=== PATIENT | female | born 1960 | race Caucasian/White ===

== ENCOUNTER 2017-12-05 05:46 | Observation (INO) | payer OTHER ==
[2017-11-21 14:57] VITALS: BMI 40.0
[2017-12-05] VITALS (14 sets, daily range): BP systolic 92–131; BP diastolic 57–85; PULSE 85–111; TEMP 36.4–36.9; O2SAT 91–96; Ht 165.1 cm; Wt 109.9 kg
[~2017-12-05] VITALS: Ht 165.1 cm; Wt 109.9 kg
[~2017-12-05 05:46] MED LIST: AMLO5TAB3 PO; ATOR-24 PO; DTR/5 PO; FURO-85 PO; GABA-113 PO; MAGN1TAB41 PO; METF-384 PO; MONT1TAB5 PO; PRED10TA PO; SERT-234 PO; SPIR50TA2 PO; TRAM-10 PO; TRAZ50TA35 PO; VNTHFA/IN INH
[2017-12-05] MEDS ORDERED: ACETAMINOPHEN 500 MG TAB PO SCH (06:00)
[2017-12-05] MEDS ORDERED: GABAPENTIN 600 MG PO SCH (06:00)
[2017-12-05] MEDS ORDERED: CEFAZOLIN 2000MG IV PUSH 15 ML IV SCH (06:00)
[2017-12-05] MEDS ORDERED: CeleBREX 200 MG CAP PO SCH (06:00)
[2017-12-05] MEDS ORDERED: LACTATED RINGER'S 1000ML IV SCH (06:00)
[2017-12-05] MEDS ORDERED: MIDAZOLAM HCL 1 MG/ML 2ML VIAL ONE (06:45)
[2017-12-05] MEDS ORDERED: FENTANYL CITRATE INJ 50 MCG/1 ML 2 ML VIAL ONE ×3 (06:45→08:19)
[2017-12-05] MEDS ORDERED: BACITRACIN 50000 UNIT VIAL ONE (06:57)
--- NOTE | 2017-12-05 07:33 | History & Physical Bridge Note ---
H&P Re-Evaluation Bridge Note: I have examined the patient, reviewed the History & Physical and in the interval since the performance of the History & Physical I have noted the following changes of clinical significance: No changes noted
--- NOTE | 2017-12-05 07:34 | History and Physical ---
History & Physical Date Dec 05, 2017. Chief Complaint Neck and arm pain History of Present Illness The patient is a 57 year old female with complaints of neck and arm pain Additional History Hepatic Disease: No Endocrine Disorder: No Kidney Disease: No Hypertension: Yes Heart Disease: No Bleeding Tendencies: No Infectious Diseases: No Other: Diabetes Allergies Coded Allergies: Hydrochlorothiazide (Verified Allergy, Unknown, RASH, 12/05/17) Home Medications Scheduled Amlodipine (Norvasc), 5 MG PO QAM Atorvastatin (Lipitor), 40 MG PO HS Furosemide (Lasix), 20 MG PO QAM Gabapentin (Neurontin), 300 MG PO TID Magnesium Oxide (Magnesium), 2 TAB PO TID Metformin Hcl (Glucophage), 1,000 MG PO BID Montelukast Sodium (Montelukast Sodium), 1 TAB PO QAM Oxybutynin Chloride (Ditropan), 5 MG PO HS Prednisone (Prednisone), 10 MG PO QAM Sertraline (Zoloft), 100 MG PO QAM Spironolactone (Aldactone), 0.5 TAB PO QAM Tramadol (Ultram), 50 MG PO BID Trazodone Hcl (Trazodone), 50 MG PO HS Scheduled PRN Albuterol Hfa (Ventolin Hfa), Unknown Dose INH UD PRN for ASTHMA Physical Examination Skin: warm/dry, no rash Eyes: normal inspection, EOMI, sclerae normal ENT: normal ENT inspection, pharynx normal Head: normocephalic, atraumatic Neck: supple, no adenopathy, trachea midline Respiratory/Chest: lungs clear, normal breath sounds, no respiratory distress Cardiovascular: regular rate, rhythm, no edema, no murmur Abdomen / GI: normal bowel sounds, non tender Back: normal inspection Extremities: normal inspection, normal range of motion Neurologic/Psych: no motor/sensory deficits, alert, normal reflexes, oriented x 3 Diagnosis Cervical spinal stenosis with radiculopathy Plan of Treatment ACDF C4-5
[2017-12-05] MEDS ORDERED: MEPERIDINE HCL 25 MG/ML CARP IV PRN (07:45)
[2017-12-05] MEDS ORDERED: HYDROmorphone INJ 2 MG/ML SYR/VIAL IV PRN (07:45)
[2017-12-05] MEDS ORDERED: PHENYLEPHRINE 100MCG/ML 5ML SYR IV PRN (07:45)
[2017-12-05] MEDS ORDERED: ATROPINE SULFATE 0.1 MG/ML 5ML SYR IV PRN (07:45)
[2017-12-05] MEDS ORDERED: FLUMAZENIL 0.1 MG/1 ML 10 ML VIAL IV PRN (07:45)
[2017-12-05] MEDS ORDERED: ONDANSETRON INJ 2 MG/ML 2 ML VIAL IV PRN ×2 (07:45→09:00)
[2017-12-05] MEDS ORDERED: NALOXONE HCL 0.4 MG/1 ML VIAL/CARP IV PRN ×2 (07:45→09:00)
[2017-12-05] MEDS ORDERED: LABETALOL HCL IV 5 MG/ML 20ML IV PRN (07:45)
[2017-12-05] MEDS ORDERED: EpHEDrine SULFATE INJ 50 MG/ML AMP IV PRN (07:45)
[2017-12-05] MEDS ORDERED: HYDROmorphone INJ 2 MG/ML SYR/VIAL ONE (08:08)
[2017-12-05] MEDS ORDERED: HYDROCORTISONE SOD SUCCINATE 100 MG/2 ML VIAL ONE (08:19)
[2017-12-05] MEDS ORDERED: ONDANSETRON INJ 2 MG/ML 2 ML VIAL ONE ×2 (08:19→08:49)
[2017-12-05] MEDS ORDERED: PROPOFOL IV EMULSION 10 MG/ML 20 ML VIAL ONE (08:19)
[2017-12-05] MEDS ORDERED: LIDOCAINE HCL 2% 2 ML VIAL (20MG/ML) ONE (08:19)
[2017-12-05] MEDS ORDERED: PHENYLEPHRINE 100MCG/ML 5ML SYR ONE (08:19)
[2017-12-05] MEDS ORDERED: ALBUTEROL HFA INHALER 8.5 GM INH ONE (08:49)
[2017-12-05] MEDS ORDERED: NEOSTIGMINE METHYLSULFATE 1 MG/ML 10ML VIAL ONE (08:49)
[2017-12-05] MEDS ORDERED: GLYCOPYRROLATE INJ 0.2 MG/ML VIAL ONE (08:49)
[2017-12-05] MEDS ORDERED: FLOSEAL HEMOSTATIC MATRIX 10ML TOP ONE (08:52)
--- NOTE | 2017-12-05 08:57 | [facility] Operative Report ---
Operative Report Operative Date Dec 05, 2017. Pre-Operative Diagnosis Cervical Spinal Stenosis with Radiculopathy Post-Operative Diagnosis Cervical Spinal Stenosis with Radiculopathy Procedure(s) Performed 1. Anterior cervical discectomy bilateral foraminotomies C4-5. #2 anterior cervical arthrodesis C4-5 per #3 placement of cortical allograft filled with DBM 8 mm in C4-5. #4 application of 5 complete and screws across C4-5. Surgeon Dr. Pinto Maori Liaison Adviser Surgeon(s) Bethany Cuevas PA-C Estimated Blood Loss 10cc Findings Severe spinal stenosis Specimens None per surgeon Anesthesia Type General Description of Procedure Patient was met with briefly case discussed all questions addressed. After informed consent obtained patient was taken to the operative suite underwent intubation placed in a supine position with the head Casanova headholder. All bony prominences well-padded eyes inspected to ensure no external pressure placed upon. This point the anterior cervical spine was prepped and draped in normal sterile fashion. The assistance of fluoroscopy identified the C4-5 disc space and a transverse incision was placed along the right anterior aspect of the cervical spine overlying this region. Sharp dissection with the assistance of bipolar electrocautery was performed down to and exposing the anterior cervical spine at C4-5. Self-retaining retractors placed. Complete discectomy was then performed out to the uncovertebral joints bilaterally. [place] distracting pins were utilized to assist in visualization. I did remove all posterior annular fibers longitudinal ligament and bilateral foraminotomies. Endplates were then burred to subcortical bleeding bone and an 8 mm cortical allograft filled DBM tapped in position. Distracting apparatus was removed. A sawyer plate and screws applied with the assistance of fluoroscopy. Incision was then copiously irrigated explored to ensure there is no damage to surrounding structures or remaining bleeding. 10 round ROB drain inserted. Incision was then closed with 2 Vicryl in a fashion of 4 Monocryl for fast closure Steri-Strips sterile dressings placed. Patient weakened the PACU stable condition. Please note Bethany Hills was present at the entire procedure involved in patient positioning complex portions of the surgery and fashion closure. I attest to the content of the Intraoperative Record and any orders documented therein. Any exceptions are noted below.
[2017-12-05] MEDS ORDERED: MAGNESIUM HYDROXIDE SUSP 30 ML UDC PO PRN (09:00)
[2017-12-05] MEDS ORDERED: DEXAMETHASONE INJ 8 MG in SYRINGE 0 ML IV PRN (09:00)
[2017-12-05] MEDS ORDERED: OXYCODONE HCL IR 5 MG TAB (IMMEDIATE RELEASE) PO PRN (09:00)
[2017-12-05] MEDS ORDERED: DO NOT ADMINISTER FLU VACCINE PRN (09:00)
[2017-12-05] MEDS ORDERED: LORAZEPAM 0.5 MG TAB PO PRN (09:00)
[2017-12-05] MEDS ORDERED: DO NOT ADMINISTER PNEUMOCOCCAL VACCINE PRN (09:00)
[2017-12-05] MEDS ORDERED: DiphenhydrAMINE HCL 50 MG/ML VIAL IV PRN (09:00)
[2017-12-05] MEDS ORDERED: RACEPINEPHRINE 2.25% NEBU SOLN 0.5 ML VIAL INH PRN (09:00)
[2017-12-05] MEDS ORDERED: ACETAMINOPHEN IV 100 ML IV PRN (09:00)
[2017-12-05] MEDS ORDERED: LORAZEPAM INJ 0.5 MG in SYRINGE 0.75 ML IV PRN (09:00)
[2017-12-05] MEDS: AMLODIPINE BESYLATE 5 MG TAB PO SCH (09:00)
[2017-12-05] MEDS ORDERED: HYDROmorphone INJ 0.5 MG/0.5 ML SYR IV PRN (09:00)
[2017-12-05] MEDS ORDERED: ESMOLOL HCL 10 MG/ML 10 ML VIAL ONE (09:03)
--- NOTE | 2017-12-05 09:15 | DIAGNOSTIC IMAGING REPORT ---
INTRAOPERATIVE RADIOGRAPHS CLINICAL HISTORY: C4-C5 spinal fusion. Fluoroscopy time: 11 seconds. FINDINGS: 3 spot fluoroscopic views of the cervical spine are presented. There has been anterior fusion at C4-C5. The orthopedic hardware appears intact. An endotracheal tube is noted. IMPRESSION: Intraoperative images from anterior C4-C5 fusion as above. Electronically signed by: Leroy Villasenor M.D. 12/05/2017 9:13 AM Dictated Date/Time: 12/05/2017 9:13 AM
[2017-12-05] MEDS: FENTANYL CITRATE INJ 50 MCG/1 ML 2 ML VIAL IV PRN ×3 (09:38→10:08)
[2017-12-05] MEDS ORDERED: METOPROLOL TARTRATE 1 MG/ML VIAL ONE (09:45)
[2017-12-05] MEDS ORDERED: METOPROLOL TARTRATE 1 MG/ML VIAL IV STA ×2 (09:48→11:49)
--- NOTE | 2017-12-05 10:22 | Anesthesiology Progress Note ---
Anesthesia Post Op Note Date & Time Dec 05, 2017 at 10:22 Vital Signs Pain Intensity: 2 Vital Signs Past 12 Hours Date Time Temp Pulse Resp B/P (MAP) Pulse Ox O2 Delivery O2 Flow Rate FiO2 12/05/17 10:10 93 15 128/81 96 Nasal Cannula 4 12/05/17 10:00 92 16 127/77 95 Nasal Cannula 4 12/05/17 09:50 94 12 129/76 95 Nasal Cannula 4 12/05/17 09:48 101 140/80 12/05/17 09:40 102 21 117/62 96 Nasal Cannula 4 12/05/17 09:30 102 15 171/90 95 Oxymask 10 12/05/17 09:20 103 14 163/88 95 Oxymask 10 12/05/17 09:12 36.1 92 14 162/95 98 Oxymask 10 12/05/17 06:12 36.6 89 20 131/85 (100) 96 Room Air Notes Mental Status: alert / awake / arousable, participated in evaluation Pt Amnestic to Procedure: Yes Nausea / Vomiting: adequately controlled Pain: adequately controlled Airway Patency, RR, SpO2: stable & adequate BP & HR: stable & adequate Hydration State: stable & adequate Anesthetic Complications: no major complications apparent The patient is awake and comfortable in PACU. Her vitals are stable and her neck does not appear swollen.
[2017-12-05] MEDS ORDERED: IV FLUIDS COMPLETED PRN (11:15)
[2017-12-05] MEDS: SODIUM CHLORIDE 0.9% 1000ML 1,000 ML IV SCH (12:39)
[2017-12-05] MEDS ORDERED: SCOPOLAMINE 1.5 MG TDSY TD SCH (13:00)
[2017-12-05] MEDS ORDERED: HYDR200T5 PO (13:16)
[2017-12-05] MEDS ORDERED: RXC5 PO (13:29)
--- NOTE | 2017-12-05 13:29 | Discharge Instructions ---
Discharge Instructions Date of Service Dec 05, 2017. Admission Reason for Admission: Cervical Spinal Stenosis Discharge Discharge Diagnosis / Problem: cervical stenosis Discharge Goals Goal(s): Improve function Activity Recommendations Activity Limitations: per Instructions/Follow-up section . Instructions / Follow-Up Instructions / Follow-Up ACTIVITY RECOMMENDATIONS: SELF CARE INSTRUCTIONS AFTER THORACIC/LUMBAR FUSIONS 1. You may walk to your tolerance. It is good exercise for your legs and back. Expect some back and intermittent leg aches and pains. 2. You may perform "counter-top" level activities (make a sandwich, macey with a project, etc.). 3. No bending or lifting of more than 10 pounds or back twisting of any nature (roll like a log when turning in bed). 4. You may ride in a car for 20-30 minutes at a time. No driving until after your first visit with your doctor. 5. Frequent changes of position and restricting sitting to 30 minutes at a time will help limit the amount of back spasms and stiffness you may experience. 6. You may discontinue the use of ambulatory aids (cane, crutches, etc.) once your strength and confidence allow. 7. You may v/stol landing signal officer the shower and let water strike your incision when you arrive home at least once daily. Do not take a tub bath, sit in a hot tub or go into a swimming pool until after your first recheck in the office. SPECIAL CARE INSTRUCTIONS: VERY IMPORTANT TO READ AND REVIEW A. Your surgical incision has been closed with a cosmetic suture under the skin that will dissolve in about 6 weeks. In 14 days, you can use a pair of clean scissors and cut the suture that is left outside of the skin at the ends of your incision. 1. The small skin tapes can be removed 7 days after surgery if they have not fallen off by that point. 2. You may keep the wound open to air as much as possible to promote healing after post-op day number 5 unless told otherwise by your doctor. 3. If you think the wound looks like it is becoming infected (redness or worsening drainage) and/or you are experiencing fever, chill or worsening back pain and muscle spasms, contact the office so that we may evaluate you as soon as possible. B. Complications are uncommon, but please contact us if you have any signs or symptoms of: 1. wound infection (fever higher than 102.5 degrees F, redness, separation of wound, drainage, or increasing pain from the incision) 2. blood clots in legs (pain, swelling, redness and warmth in legs) 3. urinary tract infection (fever higher than 102.5 degrees F, burning upon urination or increased frequency of urination) 4. nerve problems (inability to walk on your toes or heels, numbness, loss of bowel or bladder control) 5. any other symptoms that concern you C. Please call the office at if you have any concerns or questions about your operation or recovery. D. No smoking! Smoking drastically decreases the chance of a solid fusion. E. Do not take any anti-inflammatory medications (Indocin, Advil, Motrin, Aspirin, Naprosyn, etc.) as these may inhibit the chance of a solid fusion. Tylenol is okay to take for pain. MANAGING PAIN AFTER SPINAL SURGERY 1. Narcotic medication is intended for short-term use and will be provided for surgical pain. Surgical pain usually lasts for a period of 4-6 weeks. Narcotic medication includes Percocet, Vicodin, Darvocet, Tylenol #3 or Lortab. 2. Longer-term pain is more appropriately treated with non-narcotic medication such as Tylenol ES. 3. Muscle spasm is not appropriately treated with narcotics. Muscle relaxers such as Soma, Flexeril or Skelaxin can be used along with Tylenol ES. 4. Remember that we all live with some "aches and pains". This is not unusual or uncommon after an injury or as we get older. a. Back pain is expected and may include muscle spasms for 4 to 6 weeks after surgery. The pain should gradually improve. If the pain worsens for no apparent reason, please contact the office. b. Intermittent leg pain may also be experienced and should not be concerned about unless it worsens for no apparent reason. If so, please contact the office. 5. We will provide appropriate medication within the normal guidelines of their prescribed use. We will also be very cautious and aware of potential abuse and extended duration of patients' medication needs. a. Pain medications are for your comfort and to assist with sleep and rest so that the tissue can heal. They are not provided in order to return to normal activity and should not be used through the day. To do so or worsening pain at night can result from ongoing tissue damage and development of tolerance to the prescribed medicine. 6. Please allow 2-3 days to process refills. Prescriptions will not be mailed but must be picked up at the office. FOLLOW UP VISIT: Keep your scheduled follow-up appointment. Any questions, please call the office at . Current Hospital Diet Patient's current hospital diet: Clear Liquid Diet Discharge Diet Recommended Diet: Regular Diet Procedures Procedures Performed: 1. Anterior cervical discectomy bilateral foraminotomies C4-5. #2 anterior cervical arthrodesis C4-5 per #3 placement of cortical allograft filled with DBM 8 mm in C4-5. #4 application of 5 complete and screws across C4-5. Pending Studies Studies pending at discharge: no Medical Emergencies . Who to Call and When: Medical Emergencies: If at any time you feel your situation is an emergency, please call 911 immediately. . Non-Emergent Contact Non-Emergency issues call your: Primary Care Provider . "Provider Documentation" section prepared by Pedro Pinto. .
[2017-12-05] MEDS ORDERED: DEXTROSE 50% 50 ML SYR IV PRN (13:30)
[2017-12-05] MEDS ORDERED: GLUCOSE 40% GEL 15 GM TUBE PO PRN (13:30)
[2017-12-05] MEDS ORDERED: CARBOHYDRATES FOR HYPOGLYCEMIA PO PRN (13:30)
[2017-12-05] MEDS ORDERED: GLUCAGON FOR INJ 1 MG VIAL SQ PRN (13:30)
[2017-12-05] MEDS ORDERED: GLUCOSE 10 TABS/TUBE PO PRN (13:30)
[2017-12-05] MEDS ORDERED: GABAPENTIN 300 MG CAP PO SCH ×2 (14:00)
--- NOTE | 2017-12-05 14:22 | Medical Consult ---
Consultation Date of Consultation: Dec 05, 2017. Attending Physician: Pedro Pinto D.O. Reason for Consultation: Postoperative medical management History of Present Illness This is a 57-year-old white female, PCP Dr. Roger, who has a significant past medical history of CHF-diastolic,T2DM, HTN, HLD, Hypercalcemia, GERD, Fibromyalgia, Major depressive disorder, and morbid obesity. She presented to [facility] on 12/05/17 for elective cervical procedure by Dr. Pinto. Pt has had cervical spinal stenosis with radiculopathy that failed conservative management. She underwent a ACDF C4-5 without post op complications. EBL was 10cc. She tolerate procedure well. Currently is drowsy, complains of mild neck pain, no radiating pain, numbness or tingling. She denies f/c/s, chest pain, sob, lightheaded, dizziness, n/v/d. Appetite has returned, "I ate all of my lunch." She complains of chronic pedal edema at baseline, "I take lasix for that." When reviewing medication list patient notes that 1 week ago she was taken off prednisone by PCP and started on hydroxychloroquine for, "high calcium." Currently she offers no new complaints. Preoperative blood work on 10/14/17 revealed H&H 12 and 39, platelet 132, sodium 138, potassium 4.2, BUN 23, creatinine 0.91, glucose 107, calcium 9.3. We have been consulted for medical management. Past Medical/Surgical History Medical Problems: (1) Diastolic CHF, chronic Status: Chronic (2) Fibromyalgia Status: Chronic (3) GERD (gastroesophageal reflux disease) Status: Chronic (4) History of asthma Status: Chronic (5) HLD (hyperlipidemia) Status: Chronic (6) HTN (hypertension) Status: Chronic (7) Hypercalcemia Status: Chronic (8) Morbid obesity with BMI of 40.0-44.9, adult Status: Chronic (9) Recurrent major depressive disorder in partial remission Status: Chronic (10) T2DM (type 2 diabetes mellitus) Status: Chronic Surgical Problems: (1) History of Permanent Comment: x3 Status: Chronic (2) History of carpal tunnel release of both wrists Status: Chronic (3) History of cholecystectomy Status: Chronic (4) History of hernia repair Permanent Comment: x3 Status: Chronic (5) History of total left knee replacement (TKR) Status: Chronic (6) History of tubal ligation Status: Chronic (7) History of vein stripping Status: Chronic Family History FH: Alzheimers disease MOTHER FH: CAD (coronary artery disease) GRANDFATHER (unknown age of onset) FH: congestive heart failure FATHER ( at 73) Social History Smoking Status: Never Smoker Smokeless Tobacco Use: No Alcohol Use: none Drug Use: none Marital Status: Housing Status: lives with significant other Occupation Status: disabled Allergies Coded Allergies: Hydrochlorothiazide (Verified Allergy, Unknown, RASH, 12/05/17) Current Inpatient Medications Current Inpatient Medications Medications (Trade) Dose Ordered Sig/Joyce Route Start Time Stop Time Status Last Admin Dose Admin Lactated Ringer's 1,000 ml @ 15 mls/hr Q24H IV 12/05/17 06:00 12/06/17 05:59 12/05/17 06:22 15 MLS/HR Cefazolin Sodium 15 ml @ 3.75 mls/ min PREOP IV 12/05/17 06:00 12/05/17 18:00 12/05/17 07:41 3.75 MLS/MIN Acetaminophen (Tylenol Tab) 1,000 mg PREOP PO 12/05/17 06:00 12/05/17 18:00 12/05/17 06:22 1,000 MG Celecoxib (CeleBREX CAP) 200 mg PREOP PO 12/05/17 06:00 12/05/17 18:00 12/05/17 06:22 200 MG Gabapentin (Neurontin Cap) 600 mg PREOP PO 12/05/17 06:00 12/05/17 18:00 12/05/17 06:23 600 MG Racepinephrine (Raccemic Epinephrine 2.25% 0.5ML Neb) 0.5 ml ONE PRN INH 12/05/17 09:00 Acetaminophen 100 ml @ 400 mls/hr Q8H PRN IV 12/05/17 09:00 01/04/18 08:59 Hydromorphone HCl (Dilaudid Inj) 0.5mg IV for moder... Q3H PRN IV 12/05/17 09:00 12/19/17 08:59 Magnesium Hydroxide (Milk Of Magnesia Susp) 30 ml DAILY PRN PO 12/05/17 09:00 01/04/18 08:59 Docusate Sodium (coLACE CAP) 100 mg BID PO 12/05/17 21:00 01/04/18 20:59 Ondansetron HCl (Zofran Inj) 4 mg Q6 PRN IV 12/05/17 09:00 01/04/18 08:59 Scopolamine (Transderm-Scop Patch) 1.5 mg Q72H TD 12/05/17 13:00 01/04/18 12:59 Cefazolin Sodium 2000 mg/Syringe 15 ml @ 3.75 mls/ min Q8H IV 12/05/17 16:00 12/06/17 08:03 Lorazepam (Ativan Tab) 0.5 mg Q8H PRN PO 12/05/17 09:00 01/04/18 08:59 Lorazepam 0.5 mg/ Syringe 1 ml @ 1 mls/min Q8H PRN IV 12/05/17 09:00 01/04/18 08:59 Diphenhydramine HCl (Benadryl Inj) 25 mg Q6H PRN IV 12/05/17 09:00 01/04/18 08:59 Pneumococcal Polysaccharide Vaccine 1 ea PRN PRN N/A 12/05/17 09:00 01/04/18 08:59 Influenza Virus Vacc Triv Types A&B 1 ea PRN PRN N/A 12/05/17 09:00 01/04/18 08:59 Sodium Chloride 1,000 ml @ 80 mls/hr [id number] IV 12/05/17 12:05 12/06/17 12:04 12/05/17 12:39 80 MLS/HR Oxycodone HCl (Roxicodone Immediate Rel Tab) 5mg for pain scale 4-6 1... Q4H PRN PO 12/05/17 09:00 12/19/17 08:59 Polyethylene (Miralax Powder Packet) 17 gm DAILY PO 12/07/17 09:00 01/06/18 08:59 Bisacodyl (Dulcolax Tab) 5 mg DAILY PRN PO 12/07/17 06:00 01/06/18 05:59 Bisacodyl (Dulcolax Supp) 10 mg DAILY PRN VA 12/07/17 06:00 01/06/18 05:59 Dexamethasone Sodium Phosphate 8 mg/Syringe 2 ml @ 1 mls/min ONE PRN IV 12/05/17 09:00 Naloxone HCl (Narcan Inj) 0.1 mg Q5M PRN IV 12/05/17 09:00 01/04/18 08:59 Miscellaneous (Remove Transderm-Scop Patch) 1 ea Q72H N/A 12/08/17 12:59 01/07/18 12:58 Miscellaneous Information (Check Scopolamine Patch Placement) 1 ea QS N/A 12/05/17 16:00 01/04/18 15:59 Amlodipine Besylate (Norvasc Tab) 5 mg QAM PO 12/05/17 09:00 01/04/18 08:59 Atorvastatin Calcium (Lipitor Tab) 40 mg HS PO 12/05/17 21:00 01/04/18 20:59 Furosemide (Lasix Tab) 20 mg QAM PO 12/06/17 09:00 01/05/18 08:59 Montelukast Sodium (Singulair Tab) 10 mg QAM PO 12/06/17 09:00 01/05/18 08:59 Sertraline HCl (Zoloft Tab) 100 mg QAM PO 12/06/17 09:00 01/05/18 08:59 Spironolactone (Aldactone Tab) 25 mg QAM PO 12/06/17 09:00 01/05/18 08:59 Tramadol HCl (Ultram Tab) 50 mg BID PO 12/05/17 21:00 01/04/18 20:59 Trazodone HCl (Desyrel Tab) 50 mg HS PO 12/05/17 21:00 01/04/18 20:59 Magnesium Oxide (Mag-Ox Tab) 800 mg TID PO 12/05/17 14:00 01/04/18 13:59 Miscellaneous (Iv Fluids Completed) 1 ea PRN PRN N/A 12/05/17 11:15 12/05/18 11:14 Hydroxychloroquine Sulfate (Plaquenil Tab) 200 mg BID PO 12/05/17 21:00 01/04/18 20:59 UNV Gabapentin (Neurontin Cap) 400 mg TID PO 12/05/17 14:00 01/04/18 13:59 UNV Oxybutynin Chloride (Ditropan Tab) 5 mg BID PO 12/05/17 21:00 01/04/18 20:59 UNV Review of Systems As noted per HPI, 10 systems reviewed and negative unless noted above. Physical Exam Vital Signs Label Value Date Time Patient Temperature 36.9 C. 12/05/17 1315 Pulse 111 12/05/17 1315 Location Right Brachial Respiratory Rate 14 12/05/17 1315 Blood Pressure Assessment 121/75 (90) 12/05/17 1315 Bedside Pulse Oximetry 92 % 12/05/17 1315 Item Value Date Time Oxygen Flow Rate 4.0 L/min 12/05/17 1315 General Appearance: WD/WN, no apparent distress, + obese, + pertinent finding ( Sitting up in bed, drowsy) Head: normocephalic, atraumatic Eyes: normal inspection, sclerae normal ENT: normal ENT inspection, hearing grossly normal, + pertinent finding ( Mucous membranes dry) Neck: + pertinent finding (Cervical collar in place, anterior dressing CDI, ROB drain noted with serosanguineous drainage) Respiratory/Chest: chest non-tender, lungs clear, normal breath sounds, no respiratory distress, no accessory muscle use, + pertinent finding (Currently on O2 via NC 4 L) Cardiovascular: regular rate, rhythm, + abnormal peripheral pulses (Decreased secondary to pedal edema), + pertinent finding (1/6 soft ZAYRA noted at apex) Abdomen/GI: normal bowel sounds, non tender, soft, + distended (Secondary to obesity) Extremities/Musculoskelatal: normal capillary refill, + pedal edema (Nonpitting , bilateral SCDs in place) Neurologic/Psych: alert, normal mood/affect (But drowsy), oriented x 3 Skin: normal color, no rash Laboratory Results Last 24 Hours Test 12/05/17 06:06 12/05/17 06:19 12/05/17 09:30 12/05/17 12:04 Bedside Glucose 114 mg/dl 134 mg/dl 142 mg/dl Hepatitis C Antibody Screen NEG Assessment & Plan (1) Cervical stenosis of spinal canal Status: Acute Assessment & Plan: This is a 57-year-old white female, PCP Dr. Roger, who has a significant past medical history of CHF-diastolic,T2DM, HTN, HLD, Hypercalcemia, GERD, Fibromyalgia, Major depressive disorder, and morbid obesity. She presented to [facility] on 12/05/17 for elective cervical procedure by Dr. Pinto. Pt has had cervical spinal stenosis with radiculopathy that failed conservative management. She underwent a ACDF C4-5 without post op complications. EBL was 10cc. - pain/wound management per ortho - VTE per ortho - incentive spirometry q2hr - monitor cbc/cmp - therapy as directed per ortho (2) T2DM (type 2 diabetes mellitus) Status: Chronic Assessment & Plan: On metformin 1 g twice daily at home -We will hold metformin, add ISS before meals and at bedtime (3) HTN (hypertension) Status: Chronic Assessment & Plan: -Continue amlodipine -Blood pressure acceptable -Amlodipine will be contributing to chronic pedal edema (4) HLD (hyperlipidemia) Status: Chronic Assessment & Plan: Continue atorvastatin (5) Diastolic CHF, chronic Status: Chronic Assessment & Plan: Most recent echo review EF 60-65% with LV diastolic dysfunction grade 1, moderate aortic valve stenosis On lasix 20mg daily and Aldactone. (6) Hypercalcemia Status: Chronic Assessment & Plan: Followed by Dr. Roger PCP. PCP records also indicate dx of Sarcoidosis. Treated initially with prednisone and transitioned to hydroxychloroquine Pre-op calcium was 9.3 Obtained PCP notes which states the above. Etiology currently unclear. She is to be followed with pulmonology for bronchoscopy. (7) Recurrent major depressive disorder in partial remission Status: Chronic Assessment & Plan: Continue Zoloft Mood is stable (8) GERD (gastroesophageal reflux disease) Status: Chronic Assessment & Plan: Currently asymptomatic Not being treated with PPI or H2 zoie at this time (9) Fibromyalgia Status: Chronic Assessment & Plan: Continue Neurontin (10) Morbid obesity with BMI of 40.0-44.9, adult Status: Chronic Assessment & Plan: Encourage lifestyle modifications (11) History of asthma Status: Chronic Assessment & Plan: Currently stable prn Ventolin at home, she is not using Patient states she is to be on oxygen at bedtime Attending addendum: The patient was seen and examined in medical floor. 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 Herlinda Shultz Thank you for this consultation. We will follow the patient with you during their hospital stay. You can reach a member of the [facility] Hospitalist Team 22/11 via pager @ [phone].
[2017-12-05] MEDS ORDERED: OXYCODONE/ACETAMINOPHEN 5-325 TAB PO PRN (14:45)
[2017-12-05] MEDS ORDERED: NURSING VERBAL MED ORDER ONE ×2 (14:45→15:00)
[2017-12-05] MEDS: MAGNESIUM OXIDE 400 MG TAB PO SCH ×2 (15:06→20:36)
[2017-12-05] MEDS: OXYCODONE/ACETAMINOPHEN 5-325 TAB PO PRN ×2 (15:08→20:35)
[2017-12-05] MEDS: CHECK SCOPOLAMINE PATCH PLACEMENT SCH (16:02)
[2017-12-05] MEDS: GABAPENTIN 400 MG CAP PO SCH ×2 (16:02→20:35)
[2017-12-05] MEDS: CEFAZOLIN IV 2,000 MG in SYRINGE 0 ML IV SCH (16:03)
[2017-12-05] MEDS: INSULIN ASPART 100 UNITS/ML 3 ML PEN SC SCH ×2 (18:02→20:56)
[2017-12-05] MEDS: TRAMADOL HCL 50 MG TAB PO SCH (20:35)
[2017-12-05] MEDS: DOCUSATE SODIUM 100 MG CAP PO SCH (20:36)
[2017-12-05] MEDS: HYDROXYCHLOROQUINE SULFATE 200 MG TAB PO SCH (20:36)
[2017-12-05] MEDS: OXYBUTYNIN CHLORIDE 5 MG TAB PO SCH (20:37)
[2017-12-05] MEDS ORDERED: OXYBUTYNIN CHLORIDE 5 MG TAB PO SCH (21:00)
[2017-12-05] MEDS ORDERED: TRAZODONE HCL 50 MG TAB PO SCH (21:00)
[2017-12-05] MEDS ORDERED: ATORVASTATIN 40 MG TAB PO SCH (21:00)
[2017-12-06] VITALS (22 sets, daily range): BP systolic 98–137; BP diastolic 63–83; PULSE 83–95; TEMP 36.4–37; O2SAT 53–100
[2017-12-06] MEDS: CHECK SCOPOLAMINE PATCH PLACEMENT SCH ×2 (00:03→08:29)
[2017-12-06] MEDS: CEFAZOLIN IV 2,000 MG in SYRINGE 0 ML IV SCH ×2 (00:05→08:29)
[2017-12-06] MEDS: SODIUM CHLORIDE 0.9% 1000ML 1,000 ML IV SCH (00:05)
[2017-12-06] MEDS: OXYCODONE/ACETAMINOPHEN 5-325 TAB PO PRN (06:28)
[2017-12-06 06:32] LABS: HEMATOCRIT 38.5 % (37-47); HEMOGLOBIN 11.9 g/dL (12.0-16.0); MEAN CELL VOLUME 96.3 fL (80-100); MEAN CORPUSCULAR HEMOGLOBIN 29.8 pg (25-34); MEAN CORPUSCULAR HGB CONC 30.9 g/dl (32-36); MEAN PLATELET VOLUME 9.6 fL (7.4-10.4); PLATELET COUNT 156 K/uL (130-400); RED CELL DISTRIBUTION WIDTH CV 14.7 % (11.5-14.5); RED CELL DISTRIBUTION WIDTH SD 52.2 fL (36.4-46.3); WHITE BLOOD COUNT 6.65 K/uL (4.8-10.8)
[2017-12-06 07:06] LABS: ALBUMIN 3.3 gm/dl (3.4-5.0); CALCIUM 9.4 mg/dl (8.5-10.1); CREATININE 1.05 mg/dl (0.60-1.20); POTASSIUM 3.9 mmol/L (3.5-5.1); TOTAL PROTEIN 6.7 gm/dl (6.4-8.2)
[2017-12-06] MEDS ORDERED: OXYC-57 PO (08:27)
--- NOTE | 2017-12-06 08:36 | Discharge Summary ---
Orthopedic Discharge Summary Admission Date/Reason Dec 05, 2017 at 09:01 Cervical Spinal Stenosis. Discharge Date/Disposition Dec 06, 2017 Home Diagnosis Principal Diagnosis: Cervical spinal stenosis with radiculopathy Admission Physical Exam As per Admitting History & Physical. Hospital Course Patient underwent anterior cervical discectomy and fusion tolerated as well as taken to the orthopedic floor. Postoperatively her arm symptoms are improved. Swallowing well. ROB drain decreased appropriately. Subsequently she was discharged home. Discharge orders and instructions can be found in the chart for further review. Discharge Instructions Please refer to the electronic Patient Visit Report (Discharge Instructions) for additional information.
[2017-12-06] MEDS: INSULIN ASPART 100 UNITS/ML 3 ML PEN SC SCH ×2 (08:40→13:50)
[2017-12-06] MEDS: TRAMADOL HCL 50 MG TAB PO SCH ×2 (08:43→12:29)
[2017-12-06] MEDS: AMLODIPINE BESYLATE 5 MG TAB PO SCH (08:46)
[2017-12-06] MEDS: OXYBUTYNIN CHLORIDE 5 MG TAB PO SCH (08:47)
[2017-12-06] MEDS: DOCUSATE SODIUM 100 MG CAP PO SCH (08:48)
[2017-12-06] MEDS: GABAPENTIN 400 MG CAP PO SCH ×2 (08:49→13:48)
[2017-12-06] MEDS: MAGNESIUM OXIDE 400 MG TAB PO SCH ×2 (08:49→13:48)
[2017-12-06] MEDS: HYDROXYCHLOROQUINE SULFATE 200 MG TAB PO SCH (08:50)
[2017-12-06] MEDS ORDERED: SPIRONOLACTONE 25 MG TAB PO SCH (09:00)
[2017-12-06] MEDS ORDERED: MONTELUKAST SOD 10 MG TAB PO SCH (09:00)
[2017-12-06] MEDS ORDERED: SERTRALINE HCL 100 MG TAB PO SCH (09:00)
[2017-12-06] MEDS ORDERED: FUROSEMIDE 20 MG TAB PO SCH (09:00)
--- NOTE | 2017-12-06 09:50 | Progress Note ---
Subjective Date of Service: Dec 06, 2017. (Janessa Shin PA-C) Subjective Pt evaluation today including: conversation w/ patient (Discussion with nurse Wilson), chart review Pain: Neck Pain, 12/09 This is a 57-year-old white female, PCP Dr. Roger, who has a significant past medical history of CHF-diastolic,T2DM, HTN, HLD, Hypercalcemia, GERD, Fibromyalgia, Major depressive disorder, and morbid obesity. She presented to [facility] on 12/05/17 for elective cervical procedure by Dr. Pinto. Pt has had cervical spinal stenosis with radiculopathy that failed conservative management. She underwent a ACDF C4-5 without post op complications. EBL was 10cc. She tolerate procedure well. She was seen and evaluated in bedside chair in room 303 with and Nurse at bedside. Denies f/c/s, chest pain, sob, dickinson, cough, n/v/d. Had 2 BM prior to arrival yesterday, but none since procedure. Appetite has returned, ate 100% of breakfast. [place] she slept well last evening, denies orthopnea, PND. Complains of neck pain, 12/09, denies numbness or tingling, or radiation of pain. Per nurse Wilson overnight patient desaturated to 70% with out O2, and with O2 was high 80s. Also after she went to the bathroom with out oxygen and ambulated back to chair O2 read 60%, patient was asymptomatic, not complaining of DICKINSON or SOB, cough or tachypneic. There was concern for poor peripheral circulation causing false reading of pulse ox vs. true hypoxia. Patient is planned to discharge today per Ortho. (Janessa Shin, SOFIYAC) Problem List Medical Problems: (1) Diastolic CHF, chronic Status: Chronic (2) Fibromyalgia Status: Chronic (3) GERD (gastroesophageal reflux disease) Status: Chronic (4) History of asthma Status: Chronic (5) HLD (hyperlipidemia) Status: Chronic (6) HTN (hypertension) Status: Chronic (7) Hypercalcemia Status: Chronic (8) Morbid obesity with BMI of 40.0-44.9, adult Status: Chronic (9) Recurrent major depressive disorder in partial remission Status: Chronic (10) T2DM (type 2 diabetes mellitus) Status: Chronic Surgical Problems: (1) History of Permanent Comment: x3 Status: Chronic (2) History of carpal tunnel release of both wrists Status: Chronic (3) History of cholecystectomy Status: Chronic (4) History of hernia repair Permanent Comment: x3 Status: Chronic (5) History of total left knee replacement (TKR) Status: Chronic (6) History of tubal ligation Status: Chronic (7) History of vein stripping Status: Chronic (Janessa Shin PA-C) Review of Systems As noted per HPI, 10 systems reviewed and negative unless noted above. (Janessa Shin PA-C) Medications Medications (Trade) Dose Ordered Sig/Joyce Route Start Time Stop Time Status Last Admin Dose Admin Docusate Sodium (coLACE CAP) 100 mg BID PO 12/05/17 21:00 01/04/18 20:59 12/06/17 08:48 100 MG Scopolamine (Transderm-Scop Patch) 1.5 mg Q72H TD 12/05/17 13:00 01/04/18 12:59 12/05/17 15:06 1.5 MG Cefazolin Sodium 2000 mg/Syringe 15 ml @ 3.75 mls/ min Q8H IV 12/05/17 16:00 12/06/17 08:03 DC 12/06/17 08:29 3.75 MLS/MIN Sodium Chloride 1,000 ml @ 80 mls/hr [id number] IV 12/05/17 12:05 12/06/17 12:04 12/06/17 00:05 80 MLS/HR Miscellaneous Information (Check Scopolamine Patch Placement) 1 ea QS N/A 12/05/17 16:00 01/04/18 15:59 12/06/17 08:29 1 EA Atorvastatin Calcium (Lipitor Tab) 40 mg HS PO 12/05/17 21:00 01/04/18 20:59 12/05/17 20:36 40 MG Furosemide (Lasix Tab) 20 mg QAM PO 12/06/17 09:00 01/05/18 08:59 12/06/17 08:50 20 MG Sertraline HCl (Zoloft Tab) 100 mg QAM PO 12/06/17 09:00 01/05/18 08:59 12/06/17 08:51 100 MG Spironolactone (Aldactone Tab) 25 mg QAM PO 12/06/17 09:00 01/05/18 08:59 12/06/17 08:48 25 MG Trazodone HCl (Desyrel Tab) 50 mg HS PO 12/05/17 21:00 01/04/18 20:59 12/05/17 20:36 50 MG Magnesium Oxide (Mag-Ox Tab) 800 mg TID PO 12/05/17 14:00 01/04/18 13:59 12/06/17 08:49 800 MG Metoprolol Tartrate (Lopressor Iv) 5 mg STK-MED ONCE .ROUTE 12/05/17 09:45 12/05/17 09:46 DC 12/05/17 09:48 5 MG Hydroxychloroquine Sulfate (Plaquenil Tab) 200 mg BID PO 12/05/17 21:00 01/04/18 20:59 12/06/17 08:50 200 MG Oxybutynin Chloride (Ditropan Tab) 5 mg BID PO 12/05/17 21:00 01/04/18 20:59 12/06/17 08:47 5 MG Insulin Aspart (novoLOG ASPART) SLIDING SCALE If C... ACHS SC 12/05/17 17:15 01/04/18 17:14 12/06/17 08:40 2 UNITS Oxycodone/ Acetaminophen (Percocet 5-325mg Tab) `1-2 tabs for pain 1 tab ... Q4H PRN PO 12/05/17 15:00 12/19/17 14:59 12/06/17 06:28 2 TAB Gabapentin (Neurontin Cap) 400 mg TID PO 12/05/17 15:00 01/04/18 14:59 12/06/17 08:49 400 MG (Janessa Shin, LANDY) Objective Vital Signs Vital Signs Label Value Date Time Blood Pressure Assessment 108/64 (79) 12/06/17 0850 Location Right Arm Source NIBP Position Supine Bedside Pulse Oximetry 87 % L 12/06/17 0813 Bedside Pulse Oximetry 94 % 12/06/17 0801 Patient Temperature 36.9 C. 12/06/17 0801 Temperature Source Oral 12/06/17 0801 Item Value Date Time Oxygen Delivery Method Oxymask 12/06/17 0813 Oxygen Flow Rate 3.0 L/min 12/06/17 0813 (Janessa Shin PA-C) Physical Exam General Appearance: WD/WN, no apparent distress, + obese, + pertinent finding ( Drowsy, sitting up in bedside chair, converses easily.) Eyes: normal inspection, sclerae normal ENT: hearing grossly normal, + pertinent finding (Mucous membranes moist) Neck: + pertinent finding (cervical collar in place, dressing CDI, ROB drain noted with serosangious output) Respiratory/Chest: chest non-tender, lungs clear, normal breath sounds, no respiratory distress, no accessory muscle use, + decreased breath sounds, + pertinent finding (On 4L O2 via mask) Cardiovascular: regular rate, rhythm, no gallop, + systolic murmur (1/6 soft murmur at apex), + pertinent finding (LASHAE stockings in place, trace pedal edema) Abdomen: normal bowel sounds, non tender, soft, + distended (secondary to obesity) Extremities: normal range of motion, non-tender, normal inspection, + pedal edema (trace) Neurologic/Psychiatric: no motor/sensory deficits, alert, normal mood/affect, oriented x 3, + pertinent finding (Drowsy, flat affect) Skin: normal color, warm/dry, no rash (Janessa Shin, ZOHREH-C) Laboratory Results Item Value Date Time Sodium Level 143 mmol/L 12/06/17 0532 Potassium Level 3.9 mmol/L 12/06/17 0532 Chloride Level 103 mmol/L 12/06/17 0532 Carbon Dioxide Level 37 mmol/L H 12/06/17 0532 Blood Urea Nitrogen 15 mg/dl 12/06/17 0532 Creatinine 1.05 mg/dl 12/06/17 0532 Bedside Glucose 103 mg/dl H 12/06/17 0804 Bedside Glucose 101 mg/dl H 12/05/17 205 Magnesium Level 2.2 mg/dl 12/06/17 0532 Calcium Level 9.4 mg/dl 12/06/17 0532 Albumin 3.3 gm/dl L 12/06/17 0532 White Blood Count 6.65 K/uL 12/06/17 0532 Hemoglobin 11.9 g/dL L 12/06/17 0532 Hematocrit 38.5 % 12/06/17 0532 Platelet Count 156 K/uL 12/06/17 0532 (Janessa Shin, LANDY) Assessment and Plan (1) Cervical stenosis of spinal canal Assessment & Plan: This is a 57-year-old white female, PCP Dr. Roger, who has a significant past medical history of CHF-diastolic,T2DM, HTN, HLD, Hypercalcemia, GERD, Fibromyalgia, Major depressive disorder, and morbid obesity. She presented to [facility] on 12/05/17 for elective cervical procedure by Dr. Pinto. Pt has had cervical spinal stenosis with radiculopathy that failed conservative management. She underwent a ACDF C4-5 without post op complications. EBL was 10cc. POD #2 - pain/wound management per ortho - VTE per ortho - incentive spirometry q2hr - CBC, CMP noted. - therapy as directed per ortho (2) Hypoxia Assessment & Plan: -patient has multiple contributing factors including Asthma , obesity, hypoventilation secondary to narcotics, DHF, . -Concern for undiagnosed Obstructive sleep apnea. -Discussed with patient about following up PCP with sleep study. -In the interim I recommend she strictly follow her O2 as prescribed by PCP. -Will check CXR portable today prior to discharge (3) T2DM (type 2 diabetes mellitus) Assessment & Plan: Discharge home on metformin 1 g twice daily blood sugars acceptable (4) HTN (hypertension) Assessment & Plan: blood pressure actually on lower side this morning. on amlodipine and lasix. Monitor closely for hypotension. Amlodipine may be contributing to chronic pedal edema (5) HLD (hyperlipidemia) Assessment & Plan: Continue atorvastatin (6) Diastolic CHF, chronic Assessment & Plan: Most recent echo review EF 60-65% with LV diastolic dysfunction grade 1, moderate aortic valve stenosis On lasix 20mg daily and Aldactone. (7) Hypercalcemia Assessment & Plan: Correct Ca this a.m is 10.[address] Roger PCP. PCP records also indicate dx of Sarcoidosis. Treated initially with prednisone and transitioned to hydroxychloroquine Pre-op calcium was 9.3 Obtained PCP notes which states the above. Etiology currently unclear. She is to be followed with pulmonology for bronchoscopy. (8) Recurrent major depressive disorder in partial remission Assessment & Plan: Continue Zoloft Mood is stable (9) GERD (gastroesophageal reflux disease) Assessment & Plan: Currently asymptomatic Not being treated with PPI or H2 zoie at this time (10) Fibromyalgia Assessment & Plan: Continue Neurontin (11) Morbid obesity with BMI of 40.0-44.9, adult Assessment & Plan: Encourage lifestyle modifications (12) History of asthma Assessment & Plan: Currently stable prn Ventolin at home, she is not using Patient states she is to be on oxygen at bedtime Thank you for this consultation. We will follow the patient with you during their hospital stay. You can reach a member of the [facility] Hospitalist Team 22/11 via pager @ . (Janessa Shin PA-C) Attending addendum: The patient was seen and examined in medical floor Has been requiring oxygen 2 L to maintain saturation on the time Has oxygen at home to use at night but has not been using it Chest x-ray did not show any CHF and/or infiltration but did show atelectasis On examination; Obese with minimal distress at rest Has cervical collar and a drain in situ Chest-decreased breath sounds both sites no wheezing and or crackles Heart-regular Abdomen-benign Extremities-trace edema bilaterally Postop labs and x-ray reviewed Medically stable to be discharged Recommended to have outpatient sleep study and also to a steps saturation test before discharge Agree with assessment and plan as mentioned earlier Dr. Herlinda Shultz (Lida Shultz M.D.)
--- NOTE | 2017-12-06 09:55 | Consultant Recommendations ---
Transfer Specialist Recommendations Date of Service Dec 06, 2017. Transfer Specialist Recommendations Recommend oxygen at bedtime as prescribed. Follow up with PCP Dr. Roger to discuss sleep study for evaluation of sleep apnea Will get 2 steps O2 saturation test before discharge
--- NOTE | 2017-12-06 10:21 | DIAGNOSTIC IMAGING REPORT ---
CHEST ONE VIEW PORTABLE CLINICAL HISTORY: Hypoxia. COMPARISON STUDY: Chest radiograph October 14, 2017. FINDINGS: Minimal left basilar opacity is suggestive of atelectasis. No pneumothorax or pleural effusion. There is no consolidation or evidence for pulmonary edema. There is borderline cardiomegaly. IMPRESSION: 1. No acute cardiopulmonary findings. 2. Borderline cardiomegaly. 3. Minimal left basilar opacity suggestive of atelectasis. Electronically signed by: Connor Cho M.D. 12/06/2017 10:19 AM Dictated Date/Time: 12/06/2017 10:18 AM
[2017-12-07] MEDS ORDERED: BISACODYL 5 MG TABEC PO PRN (06:00)
[2017-12-07] MEDS ORDERED: BISACODYL 10 MG SUPP PR PRN (06:00)
[2017-12-07] MEDS ORDERED: POLYETHYLENE (MIRALAX) 17 GM PACK PO SCH (09:00)
== END 2017-12-06 14:53 | disposition home health service (06) ==
LOC: C.ACU 05:46 → C.3E 09:01 → ENRESERV 10:46
PROVIDERS: ADMIT Orthopaedic Surgery Orthopaedic Surgery of the Spine; ATTEND Orthopaedic Surgery Orthopaedic Surgery of the Spine
DX: M48.02 Spinal stenosis, cervical region (principal); F32.9 Major depressive disorder, single episode, unspecified; I50.32 Chronic diastolic (congestive) heart failure; E66.01 Morbid (severe) obesity due to excess calories; M79.7 Fibromyalgia; K21.9 Gastro-esophageal reflux disease without esophagitis; E78.5 Hyperlipidemia, unspecified; E11.9 Type 2 diabetes mellitus without complications; I11.0 Hypertensive heart disease with heart failure; Z79.899 Other long term (current) drug therapy; Z79.84 Long term (current) use of oral hypoglycemic drugs